=== PATIENT | female | born 1945 | race Caucasian/White ===

== ENCOUNTER 2020-06-25 12:42 | Outpatient (CLI) | payer OTHER, SELFPAY ==
--- NOTE | ~2020-06-25 | DEXA_ITS ---
Bone Density Report Name: Jerry Castro Age: 74 Sex: Female Ethnicity: White Date of : 1945 Indication: postmenopausal osteoporosis; cancer; Referring Provider: Lisa, Henry Study: Bone densitometry was performed. Exam Date: June 25, 2020 Accession number: [id number] Bone Density: Region BMD T-score Z-score Classification AP Spine (L1, L2, L4) 0.816 -2.0 0.4 Osteopenia Femoral Neck (Left) 0.559 -2.6 -0.5 Osteoporosis Total Hip (Left) 0.569 -3.1 -1.3 Osteoporosis Total Hip Bilateral Avg 0.626 -2.6 -0.9 Osteoporosis Femoral Neck (Right) 0.595 -2.3 -0.2 Osteopenia Total Hip (Right) 0.681 -2.1 -0.4 Osteopenia World Health Organization criteria for BMD impression classify patients as: Normal (T-score at or above -1.0), Osteopenia (T-score between -1.0 and -2.5), or Osteoporosis (T-score at or below -2.5). 10-year Fracture Risk: FRAX not reported because: Some T-score for Spine Total or Hip Total or Femoral Neck at or below -2.5 Previous Exams: Region Exam Age BMD T-score BMD Change BMD Change Date g/cm2 vs Baseline vs Previous AP Spine(L1, L2, L4) 06/25/2020 74 0.816 -2.0 0.002(0.3%)# -0.072(-8.1%)* 03/18/2018 72 0.888 -1.3 0.074(9.1%)# 0.074(9.1%)# 07/28/2008 63 0.814 -2.0 Total Hip(Left) 06/25/2020 74 0.569 -3.1 -0.059(-9.5%)# -0.031(-5.2%)* 03/18/2018 72 0.599 -2.8 -0.028(-4.5%)# -0.071(-10.6%) 08/09/2012 67 0.670 -2.2 0.042(6.8%)# 0.042(6.8%)# 07/28/2008 63 0.628 -2.6 Total Hip(Right) 06/25/2020 74 0.681 -2.1 0.002(0.3%)# 0.050(8.0%)* 03/18/2018 72 0.631 -2.6 -0.048(-7.1%)# -0.039(-5.8%)# 08/09/2012 67 0.670 -2.2 -0.009(-1.3%)# -0.009(-1.3%)# 07/28/2008 63 0.679 -2.2 *Denotes significance at 95% confidence level, LSC for AP Spine = 0.022 g/cm2, LSC for Total Hip = 0.027 g/cm2 Clinical Information Provided by Patient: Has used the following medications: Vitamin D Has the following medical conditions: Cancer Patient maximum height was 64.5 Menopause Age: 50 No regular weight bearing exercise Onset of menses at age 14 Number of children 1 Impression: The patient has osteoporosis, based on the Left Total Hip T-score. The BMD for the AP Spine(L1, L2, L4) decreased, changing by -8.1% since the last DXA exam. The BMD for the Total Hip(Left) decreased, changing by -5.2% since the last DXA exam. Discussion: INCREASED RISK OF FRACTURE. BONE DENSITY IS UNDESIRABLY L
== END 2020-06-25 12:43 | disposition home or self-care (01) ==
PROVIDERS: PCP Student in an Organized Health Care Education/Training Program; Visit Provider Student in an Organized Health Care Education/Training Program
DX: M81.0 Age-related osteoporosis without current pathological fracture (principal); M85.88 Other specified disorders of bone density and structure, other site; M85.851 Other specified disorders of bone density and structure, right thigh
CPT/HCPCS: 77080

== ENCOUNTER 2020-12-02 09:43 | Outpatient (CLI) | payer OTHER, SELFPAY ==
--- NOTE | 2020-12-02 12:00 | NEURO_ITS ---
Impression: # Complains of numbness of lower extremities. # Bilateral peroneal neuropathy. # Neurogenic changes noted on the needle/EMG exam of lower extremities. # Clinical correlation recommended. Nerve Conduction Studies Anti Sensory Summary Table Stim Site NR Peak (ms) P-T Amp (?V) Site1 Site2 Delta-P (ms) Dist (cm) Donte (m/s) Left Sup Fibular Anti Sensory (Ant Lat Mall) 14 cm 3.1 40.9 14 cm Ant Lat Mall 3.1 16.0 52 Right Sup Fibular Anti Sensory (Ant Lat Mall) 14 cm 3.3 5.3 14 cm Ant Lat Mall 3.3 16.0 48 Left Sural Anti Sensory (Lat Mall) Calf 3.5 16.9 Calf Lat Mall 3.5 16.0 46 Right Sural Anti Sensory (Lat Mall) Calf 3.6 6.8 Calf Lat Mall 3.6 16.0 44 Motor Summary Table Stim Site NR Onset (ms) O-P Amp (mV) Site1 Site2 Delta-0 (ms) Dist (cm) Donte (m/s) Left Peroneal Motor ([employer] Med) NO RESPONSE Ankle NR Popit Ankle 0.0 Popit NR Right Peroneal Motor ([employer] Med) NO RESPONSE Ankle NR Popit Ankle 0.0 Popit NR Left Tibial Motor (Abd Vargas Brev) Ankle 5.9 3.1 Knee Ankle 8.9 40.0 45 Knee 14.8 1.4 Right Tibial Motor (Abd Vargas Brev) Ankle 5.8 4.0 Knee Ankle 9.7 41.0 42 Knee 15.5 3.4 F Wave Studies NR F-Lat (ms) L-R F-Lat (ms) Left Peroneal (Mrkrs) (EDB) NO RESPONSE NR Right Peroneal (Mrkrs) (EDB) NO RESPONSE NR Left Tibial (Mrkrs) (Abd Hallucis) 56.81 0.23 Right Tibial (Mrkrs) (Abd Hallucis) 57.03 0.23 EMG Side Muscle Nerve Root Ins Act Fibs Amp Dur Recrt Comment Right AntTibialis Dp Br Fibular L4-5 Nml Nml Decr >12ms Reduced Right Gastroc Tibial S1-2 Nml Nml Nml Nml Nml Right Fibularis Long Sup Br Fibular L5-S1 Nml Nml Nml Nml Nml Right Flex Dig Long Tibial L5-S2 Nml Nml Nml Nml Nml Right Ext Dig Brev Dp Br Fibular L5, S1 Nml Nml Nml Nml Nml Left AntTibialis Dp Br Fibular L4-5 Nml Nml Decr >12ms Reduced Left Gastroc Tibial S1-2 Nml Nml Nml Nml Nml Left Fibularis Long Sup Br Fibular L5-S1 Nml Nml Nml Nml Nml Left Flex Dig Long Tibial L5-S2 Nml Nml Nml Nml Nml Left Ext Dig Brev Dp Br Fibular L5, S1 Nml Nml Nml Nml Nml Left AbdHallucis MedPlantar S1-2 Nml Nml Decr >12ms Reduced Right AbdHallucis MedPlantar S1-2 Nml Nml Decr >12ms Reduced MTDD
== END 2020-12-02 09:44 | disposition home or self-care (01) ==
LOC: ANHNEURO 09:45
PROVIDERS: PCP Student in an Organized Health Care Education/Training Program; Visit Provider Psychiatry & Neurology Neurology
DX: G62.9 Polyneuropathy, unspecified (principal)
CPT/HCPCS: 95886; 95910